=== PATIENT | female | born 2000 | race Caucasian/White ===

== ENCOUNTER 2025-03-04 12:32 | Emergency (ER) | payer BC, SELFPAY ==
[2025-03-04 12:37] VITALS: BP 133/72
--- NOTE | 2025-03-04 13:39 | ED.GENMED ---
History of Present Illness
General
Chief Complaint: Rabies
Source: patient
Exam Limitations: none
Time Seen by Provider: 03/04/25 13:10
History of Present Illness
History of Present Illness:
25yoF with no significant past medical history presenting for rabies vaccination. Patient had a bat in her house yesterday which she trapped in the bathroom. She put on a gown and gloves and was able to trap the bat with a blanket and release it
outside. She called her PCP today and was told to go to the ED for a rabies vaccine. She denies any known bite or injury from the bat.
Past History
Past History
ED Past Medical History: None
ED Past Surgical History: None
Social History
Tobacco: Non-smoker
Alcohol: Occasional
Drug: None
Personal: Single
Living: with roommate
Employment: Student
Phy Exam
General Physical Exam
General Presentation: well appearing and no apparent distress
General Skin: warm and dry
General Habitus: normal
General Mental: alert
ENT Exam
ENT Exam: normocephalic
Pulmonary Exam
Pulmonary Exam: no respiratory distress
Neurological Exam
Neurological Exam: alert
[place] Coma Scale
Eye Opening: Spontaneous
Verbal Response: Oriented
Motor Response: Obeys Commands
GCS Total Score: 15
Skin Exam
Skin Exam: normal color and warm/dry
Psychiatric Exam
Psychiatric Exam: normal mood/affect
Course
Orders/Labs/Results
Orders:
Orders
03/04/25 13:41
Rabies Immune Globulin/Pf [HyperRAB] 2,506 unit IM NOW STA
03/04/25 13:45
Rabies Vaccine (Pcec)/Pf [Rabavert Rabies Vacc W-Diluent] 2.5 unit IM .ONCE ONE
Vital Signs
Initial and Last Documented VS:
Initial Vital Signs
Temp Pulse Resp BP Pulse Ox
98.5 F 74 18 133/72 99
03/04/25 12:37 03/04/25 12:37 03/04/25 12:37 03/04/25 12:37 03/04/25 12:37
Last Documented Vital Signs
Temp Pulse Resp BP Pulse Ox
98.5 F 74 18 133/72 99
03/04/25 12:37 03/04/25 12:37 03/04/25 12:37 03/04/25 12:37 03/04/25 13:41
MDM/Problems Addressed
Differential Diagnosis Includes:
25yoF here for rabies vaccine after there was a bat in her house that was released outside yesterday. Denies known injuries. Vaccine and immunoglobulin ordered. She was given a prescription for the remaining vaccines and advised to call the infusion
center to schedule this.
*Pulse Oximetry
SaO2: 99
Oxygen Mode of Delivery: Room air
Patient hypoxic: no (99%)
*Critical Care Note
Total Time (30-74mins, 75-104mins- exclusive of procedures): Not Applicable
ED Attending Note
-
Portions of this chart may have been created with voice recognition software.� Occasional wrong word or��sound alike� substitutions may have occurred due to the inherent limitations of voice recognition software.
Discharge Plan
Departure
Patient Disposition: Home (Routine Discharge)
Date of Disposition: 03/04/25
Time of Disposition: 13:41
Patient with high blood pressure during this ER visit?: No
Discharge Problem:
Need for prophylactic vaccination against rabies
Instructions: Rabies Vaccine CDC Vaccine Information Statement (VIS)
Prescriptions:
New
rabies vacc,human diploid (PF) 2.5 unit recon soln
1 ml IM ONCE Qty: 3 0RF
Rx Instructions:
Administer IM on 03/07/25, 03/10/25, and 03/17/25.
No Action
polyethylene glycol 3350 [Miralax] 119 GM powder
119 gm PO DAILY Qty: 10 0RF
Rx Instructions:
1 packet daily
amoxicillin-pot clavulanate 1 TABLET tablet
1 tab PO Q12 Qty: 14 0RF
Stand Alone Forms: Rabies Vaccine Post Exp Dosing
Activity Restrictions/Additional Instructions:
Call the infusion center on Thursday to schedule the remainder of your rabies vaccines.
Interventions
Interventions:
*Risk Screen - Suicide Last Done: 03/04/25 12:37
*General Assessment Last Done: 03/04/25 13:32
*Neglect/Abuse Screening Last Done: 03/04/25 13:32
*ED- Fall Risk Assessment Last Done: 03/04/25 13:32
*ED COVID-19 Vaccine History Last Done: 03/04/25 13:32
Discharge Date and Time
Print Language: ESTONIAN
[2025-03-04] MEDS: RABAVERT RABIES VACC W-DILUENT 2.5 UNIT IM (14:36)
== END 2025-03-04 14:49 | disposition home or self-care (01) ==
LOC: EMR 12:32
PROVIDERS: EMERGENCY PHYSICIAN Emergency Medicine; FAMILY PHYSICIAN Family Medicine
DX: Z20.3 Contact with and (suspected) exposure to rabies (principal); Z23 Encounter for immunization; Z29.14 Encounter for prophylactic rabies immune globulin
CPT/HCPCS: 90471; 96372; 99284; 90375; 90675

== ENCOUNTER 2025-03-10 15:01 | Emergency (ER) | payer BC, SELFPAY ==
[2025-03-10 15:14] VITALS: BP 136/87
[2025-03-10 17:43] VITALS: BP 131/83
[2025-03-10 18:26] VITALS: BMI 49.3
--- NOTE | 2025-03-10 18:26 | ED.GENMED ---
History of Present Illness
General
Chief Complaint: Numbness
Source: patient
Exam Limitations: none
Time Seen by Provider: 03/10/25 18:16
History of Present Illness
History of Present Illness:
See MDM
Past History
Past History
ED Past Medical History: None
ED Past Surgical History: None
Social History
Tobacco: Non-smoker
Alcohol: Occasional
Drug: None
Personal: Single
Living: with roommate
Employment: Student
Phy Exam
Physical Exam
Physical Exam:
See MDM
Course
Orders/Labs/Results
Orders:
Orders
03/10/25 18:25
Electrocardiogram (*1) Urgent
Reason for Study: Other
Other Reason for Exam: left arm numbness
EKG- Treatment ONCE
Vital Signs
Initial and Last Documented VS:
Initial Vital Signs
Temp Pulse Resp BP Pulse Ox
98.5 F 94 16 136/87 97
03/10/25 15:14 03/10/25 15:14 03/10/25 15:14 03/10/25 15:14 03/10/25 15:14
Last Documented Vital Signs
Temp Pulse Resp BP Pulse Ox
98.5 F 95 18 105/74 99
03/10/25 15:14 03/10/25 18:32 03/10/25 18:32 03/10/25 18:32 03/10/25 18:32
MDM/Problems Addressed
Differential Diagnosis Includes:
HPI and MDM Narrative:
25-year-old female presenting for evaluation of numbness and tingling in her left arm. Patient noted symptoms started soon after receiving an injection in her left shoulder for rabies. This would be her third injection. She received it a few days
ago. She has not developed any rash or issues prior to this indicating this is less likely an allergic reaction. Patient does acknowledge that she thinks that the injection may have irritated the nerve in her shoulder. She denies chest pain or
shortness of breath. On my exam, she is well-appearing nontoxic. The distal muscle strength is intact. Sensation grossly intact to her hand. Patient states she feels a slight sensory deficit in her left shoulder and left forearm.
Physical exam
General: Well appearing and non-toxic
HEENT: protecting airway
Neck: appears supple
CV: No evidence of cyanosis
Resp: No accessory muscle use
Abd: Non-distended
Extremities: No deformities
Neuro: alert. Patient complains of sensory deficit to her left shoulder and left arm but the distal extremity is neurovascularly intact
Psych: Normal affect
Skin: Intact
Problems Addressed including Acute and Chronic Conditions affecting care:
1. Left arm paresthesias
Acuity: acute
Prognosis: stable
Details: Likely in the setting of recent shoulder injection. The distal extremity is neurovascular intact. Will obtain screening EKG but otherwise discussed expectant management
Updates
EKG within normal limits. Patient feels comfortable at home
Differential Diagnosis (but not limited to): Paresthesias, adverse drug reaction
Testing considered: Blood work
Drug therapy (if applicable): OTC meds, please see d/c instruction regarding Rx drugs
Amount and/or Complexity of Data Reviewed
Clinical info obtained from: Patient
External data reviewed: N/A
Labs I independently reviewed (but not limited to): N/A
Radiology: N/A
Pulse Ox: not hypoxic
EKG independently reviewed: Sinus rhythm, normal axis, no STEMI
Utility Teller: N/A
Critical Care: N/A
Risk of Complication:
Social Determinants of health: Good social support
Discussed with other providers: N/A
Escalation of Care includes Admit/Obs: After being observed in the Emergency Department, pt stable for discharge.
Occasional wrong word or 'sound a like' substitutions may have occurred due to the inherent limitations of voice recognition software. Read the chart carefully and recognize, using context, where substitutions have occurred.
*Pulse Oximetry
SaO2: 99
Oxygen Mode of Delivery: Room air
Patient hypoxic: no
*Critical Care Note
Total Time (30-74mins, 75-104mins- exclusive of procedures): Not Applicable
ED Attending Note
-
Portions of this chart may have been created with voice recognition software.� Occasional wrong word or��sound alike� substitutions may have occurred due to the inherent limitations of voice recognition software.
Discharge Plan
Departure
Patient Disposition: Home (Routine Discharge)
Date of Disposition: 03/10/25
Time of Disposition: 18:47
Patient with high blood pressure during this ER visit?: No
Discharge Problem:
Paresthesia
Instructions: Paresthesia (DC)
Prescriptions:
No Action
rabies vacc,human diploid (PF) 2.5 unit recon soln
1 ml IM ONCE Qty: 3 0RF
Rx Instructions:
Administer IM on 03/07/25, 03/10/25, and 03/17/25.
Women's Multi
1 tab PO DAILY
Referrals:
Easton Hitchcock MD [Family Provider, Family Practice]
Activity Restrictions/Additional Instructions:
Please return for any worsening symptoms.
You may return at any time if you have further concerns.
Please follow up with your doctor at the first available appointment, preferably this week.
Thank you for choosing [facility].
Interventions
Interventions:
*Risk Screen - Suicide Last Done: 03/10/25 15:14
*General Assessment Last Done: 03/10/25 15:14
*Neglect/Abuse Screening Last Done: 03/10/25 15:14
*ED- Fall Risk Assessment Last Done: 03/10/25 18:27
*ED COVID-19 Vaccine History Last Done: 03/10/25 18:27
Discharge Date and Time
Print Language: SPANISH
[2025-03-10 18:32] VITALS: BP 105/74
== END 2025-03-10 18:55 | disposition home or self-care (01) ==
LOC: EMR 15:01
PROVIDERS: EMERGENCY PHYSICIAN Student in an Organized Health Care Education/Training Program; FAMILY PHYSICIAN Family Medicine
DX: R20.2 Paresthesia of skin (principal)
CPT/HCPCS: 93005; 99283

== ENCOUNTER 2025-03-17 15:14 | Outpatient (RCR) | payer BC, SELFPAY ==
[2025-03-07 15:43] VITALS: BP 134/85
[2025-03-07] MEDS: RABAVERT RABIES VACC W-DILUENT 2.5 UNIT IM (15:44)
[2025-03-10 07:58] VITALS: BP 138/81
[2025-03-10] MEDS: RABAVERT RABIES VACC W-DILUENT 2.5 UNIT IM (08:09)
[2025-03-17 15:26] VITALS: BP 131/73
[2025-03-17] MEDS: RABAVERT RABIES VACC W-DILUENT 2.5 UNIT IM (15:33)
== END 2025-03-19 23:59 | disposition home or self-care (01) ==
LOC: OID 15:14
PROVIDERS: ATTENDING PHYSICIAN Emergency Medicine
DX: Z20.3 Contact with and (suspected) exposure to rabies (principal); Z23 Encounter for immunization
CPT/HCPCS: 90471; 90675